=== PATIENT | female | born 1955 | race Caucasian/White ===

== ENCOUNTER → 2018-08-10 | Outpatient (CLI) | payer BC ==
[~2018-08-10] MED LIST: ASPIR 8181 MG PO; CEPHALEXIN500 MG PO; GABAPENTIN400 MG PO; HYDRALAZINE HCL25 MG; HYDRALAZINE HCL25 MG PO; LANTUS100 UNITS/; LASIX40 MG PO; LEVEMIR100 UNIT/1; MAGNESIUM OXID400 MG PO; METOPROLOL SUC100 MG; METOPROLOL TART25 MG PO; NOVOLIN R100 UNIT/1; SUPER-D3+ SOFT1 EACH PO
== END ==
LOC: MAMMO 14:10
DX: Z12.31 Encounter for screening mammogram for malignant neoplasm of breast (principal)
CPT/HCPCS: 77067

== ENCOUNTER → 2018-09-09 | Day surgery (SDC) | payer BC ==
[2018-09-08 11:21] LABS: BASOPHILS % 0.5 % (0.0-1.0); EOSINOPHILS # (AUTO) 0.3 (0.0-0.4); EOSINOPHILS % 3.8 % (0.0-6.0); HEMATOCRIT 34.1 % (34.2-44.1); HEMOGLOBIN 11.1 g/dL (12.0-16.0); LYMPHOCYTES # (AUTO) 1.3 (1.0-3.2); LYMPHOCYTES % 19.2 % (18.0-39.1); MEAN CORPUSCULAR HEMOGLOBIN 30.2 pg (28-32); MEAN CORPUSCULAR HGB CONC 32.6 g/dL (31-35); MEAN CORPUSCULAR VOLUME 92.9 fL (81-99); MONOCYTES # (AUTO) 0.7 (0.2-0.8); MONOCYTES % 10.5 % (4.4-11.3); NEUTROPHILS # (AUTO) 4.4 (2.1-6.9); NEUTROPHILS % 65.5 % (38.7-80.0); PLATELET COUNT 115 x10e3/uL (140-360); RED BLOOD COUNT 3.67 x10e6/uL (3.6-5.1); RED CELL DISTRIBUTION WIDTH 14.8 % (11.7-14.4)
[2018-09-08 11:38] LABS: INR 0.92; PROTHROMBIN TIME 13.2 seconds (11.9-14.5)
[2018-09-08 11:39] LABS: PARTIAL THROMBOPLASTIN TIME 29.4 seconds (23.8-35.5)
[2018-09-08 11:40] LABS: ALBUMIN 3.4 g/dL (3.5-5.0); ALBUMIN/GLOBULIN RATIO 0.9 (0.8-2.0); ANION GAP 15.4 mmol/L (8-16); CALCIUM 9.8 mg/dL (8.4-10.2); CREATININE, SERUM 4.78 mg/dL (0.57-1.11); POTASSIUM 4.4 mmol/L (3.5-5.1)
[~2018-09-09] MED LIST changes: +CARDURA8 MG PO; +CLONAZEPAM0.5 MG PO; +HUMULIN R100 UNIT/2 SC; +LIDOCAINE HCL 2% LOCAL INJ 5 ML SDV VIAL INJ ONE; +MIDAZOLAM HCL 2 MG/2 ML VIAL ONE; +NOVOLIN R100 UNIT/1 SC; +PROPOFOL IV EMULSION 10 MG/ML 50 ML VIAL ONE; +VITAMIN D3400 UNIT PO
--- OUTSIDE RECORDS SUMMARY | 2018-09-09 13:32 | XMS REPORT | Clinical Summary ---
Author Author [facility] Address Unknown Phone Unavailable Care Team Providers Care Calender Let Off Operator Name Role Phone Genoveva Ramos MD PCP Allergies No Known Allergies Current Medications Prescription Sig. Disp. Refills Start End Date Status Date azithromycin (ZITHROMAX Take 2 tablets the first 6 tablet 0 11/25/19 11/29/19 Z-DIO) 250 MG tablet day, then 1 tablet daily 18 18 for 4 days. clonAZEPAM (KlonoPIN) 0.5 Take 1 tablet (0.5 mg 5 tablet 0 11/25/19 11/27/19 MG tablet total) by mouth 2 (two) 18 18 times a day as needed for anxiety or seizures for up to 2 days. albuterol (PROAIR Inhale 1-2 puffs every 6 1 Inhaler 0 11/25/19 12/25/19 HFA,PROVENTIL (six) hours as needed for 18 18 HFA,VENTOLIN HFA) 90 wheezing for up to 30 mcg/actuation inhaler days. acetaminophen-codeine Take 1-2 tablets by mouth 20 tablet 0 02/07/20 02/17/20 (TYLENOL WITH CODEINE #3) every 6 (six) hours as 18 18 300-30 mg per tablet needed for moderate pain for up to 10 days. cyclobenzaprine Take 1 tablet (10 mg 20 tablet 0 02/07/20 02/14/20 (FLEXERIL) 10 mg tablet total) by mouth 3 (three) 18 18 times a day as needed for muscle spasms for up to 7 days. Active Problems Not on file Encounters Date Type Specialty Care Team Description 02/06/2018 Emergency Emergency Medicine Obi, right oSl, MD Darryl initial encounter (Primary Dx) 11/25/2017 Emergency Emergency Medicine Tiana Bailey Bronchitis (Primary Dx) DO Cecy after 09/08/2017 Social History Tobacco Use Types Packs/Day Years Used Date Never Smoker Smokeless Tobacco: Never Used Alcohol Use Drinks/Week oz/Week Comments No Sex Assigned at Date Recorded Not on file Last Filed Vital Signs Vital Sign Reading Time Taken Blood Pressure 168/88 02/06/2018 4:35 PM CDT Pulse 56 02/06/2018 4:35 PM CDT Temperature 36.2 C (97.2 F) 02/06/2018 4:35 PM CDT Respiratory Rate 18 02/06/2018 4:35 PM CDT Oxygen Saturation 100% 02/06/2018 4:35 PM CDT Inhaled Oxygen - - Concentration Weight - - Height 162.6 cm (5' 4") 02/06/2018 12:06 PM CDT Body Mass Index - - Plan of Treatment Health Maintenance Due Date Last Done Comments CERVICAL CANCER SCREENING 1975 BREAST CANCER SCREENING 2004 COLON CANCER SCREENING 2004 SHINGRIX VACCINE (#1) 2004 ZOSTER VACCINE 2014 INFLUENZA VACCINE 06/15/2018 Procedures Procedure Name Priority Date/Time Associated Diagnosis Comments URINALYSIS SCREEN AND Routine 02/06/2018 Results for this MICROSCOPY, WITH REFLEX 1:58 PM CDT procedure are in the TO CULTURE results section. URINE CULTURE Routine 02/06/2018 Results for this 1:58 PM CDT procedure are in the results section. US DUPLEX VENOUS LOWER STAT 02/06/2018 Results for this EXTREMITY RIGHT 1:15 PM CDT procedure are in the results section. ZZESTIMATED GFR STAT 02/06/2018 Results for this 12:20 PM CDT procedure are in the results section. COMPREHENSIVE METABOLIC STAT 02/06/2018 Results for this PANEL 12:20 PM CDT procedure are in the results section. HC COMPLETE BLD COUNT STAT 02/06/2018 Results for this W/AUTO DIFF 12:20 PM CDT procedure are in the results section. ECG ED PRELIMINARY Routine 11/26/2017 Results for this INTERPRETATION 4:49 AM SENIOR ENERGY MARKET COORDINATOR procedure are in the results section. XR CHEST 1 VW PORTABLE STAT 11/25/2017 Results for this 2:34 AM SENIOR ENERGY MARKET COORDINATOR procedure are in the results section. MANUAL DIFFERENTIAL STAT 11/25/2017 Results for this 2:20 AM SENIOR ENERGY MARKET COORDINATOR procedure are in the results section. ZZESTIMATED GFR STAT 11/25/2017 Results for this 2:20 AM SENIOR ENERGY MARKET COORDINATOR procedure are in the results section. B NATRIURETIC PEPTIDE STAT 11/25/2017 Results for this 2:20 AM SENIOR ENERGY MARKET COORDINATOR procedure are in the results section. TROPONIN STAT 11/25/2017 Results for this 2:20 AM SENIOR ENERGY MARKET COORDINATOR procedure are in the results section. COMPREHENSIVE METABOLIC STAT 11/25/2017 Results for this PANEL 2:20 AM SENIOR ENERGY MARKET COORDINATOR procedure are in the results section. PARTIAL THROMBOPLASTIN STAT 11/25/2017 Results for this TIME (PTT) 2:20 AM SENIOR ENERGY MARKET COORDINATOR procedure are in the results section. PROTHROMBIN TIME WITH INR STAT 11/25/2017 Results for this 2:20 AM SENIOR ENERGY MARKET COORDINATOR procedure are in the results section. CBC WITH PLATELET AND STAT 11/25/2017 Results for this DIFFERENTIAL 2:20 AM SENIOR ENERGY MARKET COORDINATOR procedure are in the results section. RESPIRATORY PATHOGEN Routine 11/25/2017 Results for this PANEL 2:20 AM SENIOR ENERGY MARKET COORDINATOR procedure are in the results section. INFLUENZA ANTIGEN Routine 11/25/2017 Results for this 2:20 AM SENIOR ENERGY MARKET COORDINATOR procedure are in the results section. ECG 12-LEAD STAT 11/25/2017 Results for this 1:55 AM SENIOR ENERGY MARKET COORDINATOR procedure are in the results section. after 09/08/2017 Results * Urinalysis screen and microscopy, with reflex to culture (02/06/2018 1:58 PM) Specimen site Clean catch [facility] OF PATHOLOGY AND GENOMIC MEDICINE Color, UA Straw [facility]OLOGY AND GENOMIC MEDICINE Appearance, UA Clear [facility] OF PATHOLOGY AND GENOMIC MEDICINE Specific gravity, UA 1.006 1.001 - 1.035 [facility] PATHOLOGY AND GENOMIC MEDICINE pH, UA 6.0 5.0 - 8.5 [facility] PATHOLOGY AND GENOMIC MEDICINE Protein, UA 2+ (A) Negative [facility] PATHOLOGY AND GENOMIC MEDICINE Glucose, UA 3+ (A) Negative [facility] PATHOLOGY AND GENOMIC MEDICINE Ketones, UA Negative Negative [facility] PATHOLOGY AND GENOMIC MEDICINE Bilirubin, UA Negative Negative [facility] OF PATHOLOGY AND GENOMIC MEDICINE Blood, UA Negative Negative [facility] PATHOLOGY AND GENOMIC MEDICINE Nitrite, UA Negative Negative [facility] PATHOLOGY AND GENOMIC MEDICINE Urobilinogen, UA <2.0 <2.0 [facility] PATHOLOGY AND GENOMIC MEDICINE Leukocyte esterase, UA Negative Negative [facility] OF PATHOLOGY AND GENOMIC MEDICINE Epithelial cells, UA 1 /HPF [facility] PATHOLOGY AND GENOMIC MEDICINE WBC, UA 1 0 - 4 /HPF [facility] OF PATHOLOGY AND GENOMIC MEDICINE RBC, UA 1 0 - 2 /HPF [facility] PATHOLOGY AND GENOMIC MEDICINE Bacteria, UA None seen None seen [facility] PATHOLOGY AND GENOMIC MEDICINE Yeast, UA None seen [facility] PATHOLOGY AND GENOMIC MEDICINE Yeast with pseudohyphae, None seen [facility] OF UA PATHOLOGY AND GENOMIC MEDICINE Specimen Urine Performing Organization Address City/State/Zipcode Phone Number [place] [address] [place] [address] PATHOLOGY AND GENOMIC MEDICINE * Urine culture (02/06/2018 1:58 PM) Urine culture SEE COMMENTComment: [facility] DE[facility] OF Bacteriuria screen negative. PATHOLOGY AND GENOMIC MEDICINE Performing Organization Address City/State/Zipcode Phone Number [place] [address] [place] [address] PATHOLOGY AND GENOMIC MEDICINE * Pv duplex venous lower extremity (02/06/2018 1:15 PM) Narrative Performed At EXAMINATION:US DUPLEX VENOUS LOWER EXTREMITY RIGHT [facility] CLINICAL HISTORY:leg pain and tendnerness mild swelling COMPARISON:None. TECHNIQUE:Grayscale, color Doppler, and spectral waveform analysis of the right lower extremity deep venous system was performed. The common femoral, superficial femoral, proximal deep femoral, greater saphenous, and popliteal veins were evaluated. The calf veins were also evaluated. The contralateral left common femoral vein was evaluated with color flow and duplex Doppler. FINDINGS: The right common femoral, superficial femoral, and popliteal veins are compressible. They demonstrate normal venous waveforms and response to augmentation. There is flow in the visualized calf veins. There is no evidence of a popliteal or Jade's cyst. The contralateral left common femoral vein does not have any evidence of any deep venous thrombosis. IMPRESSION: 1. Normal right lower extremity venous Doppler examination. There is no evidence of deep venous thrombosis. [id number] Procedure Note Interface, Radiology Results Incoming - 02/06/2018 1:25 PM CDT EXAMINATION: US DUPLEX VENOUS LOWER EXTREMITY RIGHT CLINICAL HISTORY: leg pain and tendnerness mild swelling COMPARISON: None. TECHNIQUE: Grayscale, color Doppler, and spectral waveform analysis of the right lower extremity deep venous system was performed. The common femoral, superficial femoral, proximal deep femoral, greater saphenous, and popliteal veins were evaluated. The calf veins were also evaluated. The contralateral left common femoral vein was evaluated with color flow and duplex Doppler. FINDINGS: The right common femoral, superficial femoral, and popliteal veins are compressible. They demonstrate normal venous waveforms and response to augmentation. There is flow in the visualized calf veins. There is no evidence of a popliteal or Jade's cyst. The contralateral left common femoral vein does not have any evidence of any deep venous thrombosis. IMPRESSION: 1. Normal right lower extremity venous Doppler examination. There is no evidence of deep venous thrombosis. [id number] Performing Organization Address City/State/Zipcode Phone Number [facility] [address] [place] [address] * Estimated GFR (02/06/2018 12:20 PM) Only the most recent of 2 results within the time period is included. GFR Non Af Amer 12 (A) mL/min/1.73 m2 [facility] OF PATHOLOGY AND GENOMIC MEDICINE GFR Af Amer 15 (A) mL/min/1.73 m2 [facility] OF Comment: PATHOLOGY AND Chronic kidney disease: <60 GENOMIC MEDICINE mL/min/1.73m2 Kidney failure: <15 mL/min/1.73m2 The estimated GFR is calculated from the IDMS-traceable Modification of Diet in Renal Disease Equation. The accuracy of the calculation is poor when the creatinine is normal. Calculated values >90 mL/min/1.73m2 are not reported. This equation has not been validated in children (<18 years), women, the elderly (>70 years), or ethnic groups other than Caucasians and Americans. Specimen Plasma specimen Performing Organization Address City/[facility] Phone Number [place] [address] [place] [address] PATHOLOGY AND [facility] * CBC with platelet and differential (02/06/2018 12:20 PM) Only the most recent of 2 results within the time period is included. WBC 6.88 4.50 - 11.00 k/uL [facility] OF PATHOLOGY AND GENOMIC MEDICINE RBC 3.26 (L) 4.20 - 5.50 m/uL [facility] OF PATHOLOGY AND GENOMIC MEDICINE HGB 9.1 (L) 12.0 - 16.0 g/dL [facility] OF PATHOLOGY AND GENOMIC MEDICINE HCT 28.5 (L) 37.0 - 47.0 % [facility] OF PATHOLOGY AND GENOMIC MEDICINE MCV 87.4 82.0 - 100.0 fL [facility] OF PATHOLOGY AND GENOMIC MEDICINE MCH 27.9 27.0 - 34.0 pg [facility] PATHOLOGY AND GENOMIC MEDICINE MCHC 31.9 31.0 - 37.0 g/dL [facility] PATHOLOGY AND GENOMIC MEDICINE RDW - SD 48.5 37.0 - 55.0 fL [facility] PATHOLOGY [facility] GENOMIC MEDICINE MPV 12.2 8.8 - 13.2 fL [facility] PATHOLOGY AND [facility] Platelet count 143 (L) 150 - 400 k/uL [facility] PATHOLOGY AND GENOMIC MEDICINE Neutrophils 67.5 39.0 - 69.0 % [facility] PATHOLOGY [facility] Lymphocytes 18.8 (L) 25.0 - 45.0 % [facility] PATHOLOGY AND GENOMIC MEDICINE Monocytes 10.0 0.0 - 10.0 % [facility] PATHOLOGY AND [facility] Eosinophils 2.5 0.0 - 5.0 % [facility] PATHOLOGY [facility] Basophils 0.6 0.0 - 1.0 % [facility] PATHOLOGY [facility] Immature granulocytes 0.6 0.0 - 1.0 % [facility] PATHOLOGY [facility] Specimen Blood Performing Organization Address City/State/Zipcode Phone Number [facility] [address] [place] [address] PATHOLOGY [facility] * Comprehensive metabolic panel (02/06/2018 12:20 PM) Only the most recent of 2 results within the time period is included. Sodium 135 135 - 148 mEq/L [facility] PATHOLOGY AND [facility] Potassium 4.6 3.5 - 5.0 mEq/L [facility] PATHOLOGY AND [facility] Chloride 96 (L) 99 - 109 mEq/L [facility] PATHOLOGY AND GENOMIC MEDICINE CO2 25 24 - 31 mEq/L [facility] PATHOLOGY AND [facility] Anion gap 14 7 - 15 mEq/L [facility] DEPARTMENT OF Comment: PATHOLOGY AND Starting from February [facility] , anion gap calculation no longer incorporates potassium. Please note the change. BUN 72 (H) 8 - 24 mg/dL [facility] PATHOLOGY AND [facility] Creatinine 3.7 (H) 0.5 - 1.5 mg/dL [facility] PATHOLOGY AND [facility] Glucose 337 (H) 65 - 99 mg/dL [facility] PATHOLOGY AND [facility] Calcium 8.5 (L) 8.6 - 10.6 mg/dL [facility] PATHOLOGY AND [facility] Protein 6.6 6.3 - 8.2 g/dL [facility] PATHOLOGY AND [facility] Albumin 2.7 (L) 3.5 - 5.0 g/dL [facility] DEPARTMENT OF PATHOLOGY AND GENOMIC MEDICINE A/G ratio 0.7 0.7 - 3.8 [facility] OF PATHOLOGY AND GENOMIC MEDICINE Alkaline phosphatase 130 (H) 30 - 115 U/L [facility] DE[facility]MENT OF PATHOLOGY AND GENOMIC MEDICINE AST 24 15 - 46 U/L [facility] DEPARTMENT OF PATHOLOGY AND GENOMIC MEDICINE ALT 14 10 - 55 U/L [facility] DEPARTMENT OF PATHOLOGY AND GENOMIC MEDICINE Total bilirubin 0.4 0.2 - 1.2 mg/dL [facility] DEPARTMENT OF PATHOLOGY AND GENOMIC MEDICINE Specimen Plasma specimen Performing Organization Address City/State/Zipcode Phone Number [facility] [place] [place] [address] [place] [address] PATHOLOGY AND GENOMIC MEDICINE * ECG ED Preliminary Interpretation - NOT AN ORDER (11/26/2017 4:49 AM) Narrative Performed At Tiana Bailey DO 11/26/20174:49 AM ECG ED Preliminary Interpretation - Not an Order Performed by: TIANA BAILEY Authorized by: TIANA BAILEY ECG reviewed by ED Physician in the absence of a sap specialist: yes Interpretation: Interpretation: abnormal Rate: ECG rate:62 ECG rate assessment: normal Rhythm: Rhythm: sinus rhythm QRS: QRS axis:Normal Comments: Normal sinus rhythm with no STEMI * XR Chest 1 Vw Portable (11/25/2017 2:34 AM) Narrative Performed At EXAMINATION: XR CHEST 1 VW PORTABLE [facility] CLINICAL HISTORY: Cough COMPARISON:None. IMPRESSION: Mild pulmonary vascular congestion. No focal or confluent airspace consolidation. No pleural effusion or pneumothorax. The cardiac silhouette appears prominent due in part to technique. Thoracic aorta with atherosclerotic calcifications. Degenerative spine changes. No acute osseous abnormalities. [facility]-[id number] Procedure Note Interface, Radiology Results Incoming - 11/25/2017 2:39 AM SENIOR ENERGY MARKET COORDINATOR EXAMINATION: XR CHEST 1 VW PORTABLE CLINICAL HISTORY: Cough COMPARISON: None. IMPRESSION: Mild pulmonary vascular congestion. No focal or confluent airspace consolidation. No pleural effusion or pneumothorax. The cardiac silhouette appears prominent due in part to technique. Thoracic aorta with atherosclerotic calcifications. Degenerative spine changes. No acute osseous abnormalities. [facility]-[id number] Performing Organization Address City/[facility]/Zipcode Phone Number [facility] [address] [place] [address] * Respiratory pathogen panel (11/25/2017 2:20 AM) Respiratory pathogen Positive for Influenza B virus [facility] DEPARTMENT OF panel PATHOLOGY AND Negative for all other GENOMIC MEDICINE pathogens tested: Negative for Adenovirus Negative for Coronavirus HKU1 Negative for Coronavirus NL63 Negative for Coronavirus 229E Negative for Coronavirus OC43 Negative for Human Metapneumovirus Negative for Rhinovirus/Enterovirus Negative for Influenza A Negative for Influenza A/H1 Negative for Influenza A/H3 Negative for Influenza A/H1-2009 Negative for Parainfluenza Virus 1 Negative for Parainfluenza Virus 2 Negative for Parainfluenza Virus 3 Negative for Parainfluenza Virus 4 Negative for Respiratory Syncytial Virus Negative for Bordetella pertussis Negative for Chlamydophila pneumoniae Negative for Mycoplasma pneumoniae This real-time PCR assay detects the presence of nucleic acids (RNA or DNA) for the respiratory pathogens listed. A result of "Not-detected" does not exclude the possibility of the presence of one or more pathogens at concentrations less than the detectable limits of the assa (A) Comment: Specimen Information Specimen Source: Nares Specimen Site: Left Specimen Nares - Left Performing Organization Address City/State/Zipcode Phone Number [facility] DEPARTMENT OF [address] [place] [address] PATHOLOGY AND GENOMIC MEDICINE * Troponin (11/25/2017 2:20 AM) Troponin <0.30 0.00 - 0.30 ng/mL [facility] DEPARTMENT OF Comment: PATHOLOGY AND 0.11 - 1.49 GENOMIC MEDICINE ng/mlMay indicate increased risk of acute coronary syndrome. >=1.5 ng/ml Consistent with acute myocardial infarction. The diagnostic value of a single normal or non-diagnostic result is questionable.Serial samples at 2-6 hour intervals are required to rule out acute myocardial injury. Specimen Plasma specimen Performing Organization Address City/State/Zipcode Phone Number [facility] [place] [address] [place] [address] PATHOLOGY AND GENOMIC MEDICINE * Manual differential (11/25/2017 2:20 AM) Manual differential PERFORMED [facility] DEPARTMENT OF PATHOLOGY AND GENOMIC MEDICINE Neutrophils 62.0 39.0 - 69.0 % [facility] DEPARTMENT OF PATHOLOGY AND GENOMIC MEDICINE Lymphocytes 32.0 25.0 - 45.0 % [facility] DEPARTMENT OF PATHOLOGY AND GENOMIC MEDICINE Monocytes 6.0 0.0 - 10.0 % [facility] DEPARTMENT OF PATHOLOGY AND GENOMIC MEDICINE Eosinophils 0.0 0.0 - 5.0 % [facility] DEPARTMENT OF PATHOLOGY AND GENOMIC MEDICINE Basophils 0.0 0.0 - 1.0 % [facility] DEPARTMENT OF PATHOLOGY AND GENOMIC MEDICINE Reactive lymphocytes Few [facility] DEPARTMENT OF PATHOLOGY AND GENOMIC MEDICINE Platelet slide review Decreased (A) [facility] DEPARTMENT OF PATHOLOGY AND GENOMIC MEDICINE Neutrophils, vacuolated Slight [facility] DEPARTMENT OF PATHOLOGY AND GENOMIC MEDICINE Anisocytosis Moderate [facility] DEPARTMENT OF PATHOLOGY AND GENOMIC MEDICINE Spherocytes Occasional [facility] DEPARTMENT OF PATHOLOGY AND GENOMIC MEDICINE Ovalocytes Moderate [facility] DEPARTMENT OF PATHOLOGY AND GENOMIC MEDICINE Enlarged platelets Moderate (A) [facility] DEPARTMENT OF PATHOLOGY AND GENOMIC MEDICINE Performing Organization Address City/[facility] [place] [address] PATHOLOGY AND GENOMIC MEDICINE * Partial thromboplastin time, activated (11/25/2017 2:20 AM) PTT 33.2 23.0 - 36.0 sec [facility] DEPARTMENT OF Comment: PATHOLOGY AND PTT therapeutic range for [facility] MEDICINE unfractionated heparin is 61.0-112.0 seconds which corresponds to Anti-Xa 0.3-0.7 U/ml. Specimen Blood Performing Organization Address [facility] [place] [address] PATHOLOGY AND [facility] * Prothrombin time with INR (11/25/2017 2:20 AM) Prothrombin time 12.7 12.0 - 15.0 sec [facility] DEPARTMENT OF PATHOLOGY AND GENOMIC MEDICINE INR 0.9 [facility] DEPARTMENT OF Comment: PATHOLOGY AND The International Normalized GENOMIC MEDICINE Ratio (INR) is a therapeutic monitoring tool for patients who are stable on oral anticoagulant therapy. An INR of 2.0-3.0 is suggested for deep vein thrombosis/pulmonary embolism. Specimen Blood Performing Organization Address City/[facility] [place] [address] PATHOLOGY AND [facility] * Influenza antigen (11/25/2017 2:20 AM) Influenza antigen Negative for Influenza A/B [facility] DEPARTMENT OF antigen. PATHOLOGY AND Comment: GENOMIC MEDICINE Specimen Information Specimen Source: Nares Specimen Site: Left Specimen Nares - Left Performing Organization Address City/State/[facility] Phone Number [facility] [place] [address] [place] [address] PATHOLOGY AND GENOMIC MEDICINE * B natriuretic peptide (11/25/2017 2:20 AM) BNP 44 0 - 100 pg/mL [facility] DEPARTMENT OF PATHOLOGY AND GENOMIC MEDICINE Specimen Blood Performing Organization Address [facility] [place] [address] PATHOLOGY AND GENOMIC MEDICINE * ECG 12 lead (11/25/2017 1:55 AM) Ventricular rate 62 [facility] Atrial rate 62 [facility] MN interval 118 [facility] QRSD interval 96 [facility] QT interval 484 [facility] QTC interval 491 [facility] P axis 1 60 [facility] QRS axis 1 48 [facility] T wave axis 90 [facility] EKG impression Normal sinus rhythm-Prolonged [facility] QT-Abnormal ECG-No previous ECGs available- Performing Organization Address [facility] Phone Number [facility] [address] [place] [address] after 09/08/2017 Insurance Payer Benefit Subscriber ID Type Phone Address Plan / Group BCBS BCBS OUT xxxxxxxxxxxx [place] [address]
--- OUTSIDE RECORDS SUMMARY | 2018-09-09 13:32 | XMS REPORT ---
Author [facility] Address Unknown Phone Unavailable Care Team Providers Care Timber Framer Helper Name Role Phone EVAN ARSHAD Unavailable Unavailable Problems This patient has no known problems. Allergies, Adverse Reactions, Alerts This patient has no known allergies or adverse reactions. Medications This patient has no known medications. Results Test Description Test Time Test Comments Text Results Atomic Results Result Comments MAMMOGRAPHY DIGITAL SCR BILAT 2018-08-10 14:57:00 [place] [address] Patient Name: SADIE GUTIERREZ MR #: [id number] : 1955 Age/Sex: 62/F Req #: [id number] [facility] Physician: Ordered by: EVAN ARSHAD MD Report #: [id number] Location: MAMMO Room/Bed: Procedure: MG/MAMMOGRAPHY DIGITAL SCR BILAT Exam Date: 08/10/18 Exam Time: 1434 REPORT STATUS: Signed #[id number] - [id number] #BILATERAL DIGITAL SCREENING MAMMOGRAM WITH CAD: 08/10/2018 CLINICAL: Routine screening. No prior exams were available for comparison. Current study contains 4 films. There are scattered fibroglandular elements in both breasts. Current study was also evaluated with a Computer Aided Detection (CAD) system. There are benign vascular calcifications and calcifications in both breasts. No significant masses, calcifications, or other findings are seen in either breast. IMPRESSION: BENIGN There is no mammographic evidence of malignancy. A 1 year screening mammogram is recommended. The patient will be notified by letter of the results. Shreya estrada/robb:08/16/2018 14:11:55 Metal Stamper: Dawn JOHN)(Oleg), [facility] letter sent: Normal Exam Mammogram BI-RADS: 2 Benign Dictated By: SHREYA ASENCIO DO 1411 Transcribed By: ROBB on 08/16/18 1411 COPY TO: EVAN ARSHAD MD
[2018-09-09 16:15] VITALS: BP 141/67
--- NOTE | 2018-09-09 17:08 | Operative Report ---
DATE OF PROCEDURE: September 09, 2018 REFERRING PHYSICIAN: Dr. Felix Ramos. PROCEDURES PERFORMED: 1. Esophagogastroduodenoscopy with biopsies. 1. Colonoscopy with biopsies. INDICATIONS FOR ESOPHAGOGASTRODUODENOSCOPY: Dyspepsia. INDICATIONS FOR COLONOSCOPY: Surveillance colonoscopy, personal history of colon polyps. MEDICATION: Patient was done under MAC. Please see anesthesiologist's note. PROCEDURE: With the patient in the left lateral decubitus position, the flexible fiberoptic Olympus gastroscope was introduced into the esophagus under direct visualization without any difficulty. There was some patchy erythema noted in the distal esophagus. A minute tongue of velvety red mucosa was noted to extend proximally from the GE junction, and that was biopsied to rule out Siegel's. The scope was then advanced with ease into the stomach, traversing a small hiatal hernia. There was a minute nodule noted in the hiatal hernia, and that was biopsied. Mucosa overlying the distal body was somewhat atrophic, and biopsies were obtained to rule out atrophic gastritis. The mucosa overlying the antrum revealed some diffuse erythema and moderate edema, and biopsies were obtained and sent to stain for H. pylori. Pylorus was of normal contour and shape, was intubated with ease, and the scope was advanced all the way to the 2nd portion of the duodenum. The scope was then withdrawn slowly. Mucosa overlying the proximal 2nd portion and the duodenal bulb appeared to be within normal limits. The scope was then withdrawn back into the stomach and retroflexed. Mucosa overlying the fundus appeared to be within normal limits. The previously described hiatal hernia was also noted in the retroflexed position. The scope was then straightened out. The stomach was decompressed. The scope was subsequently withdrawn. Patient tolerated procedure well. IMPRESSION: 1. Mild distal esophagitis. 2. Rule out Siegel's esophagus. 3. Hiatal hernia. 4. Minute nodule in hiatal hernia sac biopsied. 5. Gastritis antrum biopsied. 6. Rule out atrophic gastritis distal body. PLAN: Follow up histology. Initiate Protonix 40 mg 1 p.o. q.a.m. a.c. Patient was then turned around and after adequate lubrication of the anal canal, a flexible fiberoptic Olympus colonoscope was inserted into the rectum with ease and advanced all the way to approximately the mid transverse colon. It could not be advanced any further as a loop of the transverse colon was incarcerated in an abdominal hernia. The scope was then withdrawn back slowly. Mucosa overlying the left colon revealed some patchy mild inflammatory changes. Diverticular disease was noted to involve the descending and the sigmoid colon. Anastomotic site was noted at 18 cm from the anal verge and was intact, and there was no evidence of recurrence. The scope was then retroflexed into the distal rectum and internal hemorrhoids were noted, none of which was actively bleeding. The scope was then straightened out. It was subsequently withdrawn. Patient tolerated procedure well. IMPRESSION: 1. Colonoscopy to approximately mid transverse colon. Scope could not be advanced any further secondary to the presence of a transverse colon loop incarcerated in an abdominal hernia. 2. Diverticulosis. 3. Mild patchy left-sided colitis. 4. Anastomosis intact at 18 cm from the anal verge. 5. Internal hemorrhoids, none actively bleeding. PLAN: Follow up histology. Initiate high-fiber low-fat diet. Start VSL#3 one p.o. daily. Patient might benefit from a general surgical opinion. Job#: [id number] EV cc:MD ANIBAL MARIE MD
== END | disposition home or self-care (01) ==
LOC: OR 13:30
PROVIDERS: ATTEND Internal Medicine Gastroenterology
DX: K29.50 Unspecified chronic gastritis without bleeding (principal); K31.7 Polyp of stomach and duodenum; K51.50 Left sided colitis without complications; K22.70 Barrett's esophagus without dysplasia; K20.9 Esophagitis, unspecified; K44.9 Diaphragmatic hernia without obstruction or gangrene; K31.89 Other diseases of stomach and duodenum; K22.9 Disease of esophagus, unspecified; K63.89 Other specified diseases of intestine; K46.0 Unspecified abdominal hernia with obstruction, without gangrene; K57.30 Diverticulosis of large intestine without perforation or abscess without bleeding; Z98.0 Intestinal bypass and anastomosis status; K64.8 Other hemorrhoids; E11.22 Type 2 diabetes mellitus with diabetic chronic kidney disease; I12.9 Hypertensive chronic kidney disease with stage 1 through stage 4 chronic kidney disease, or unspecified chronic kidney disease; N18.9 Chronic kidney disease, unspecified; E66.3 Overweight; Z88.6 Allergy status to analgesic agent; Z01.810 Encounter for preprocedural cardiovascular examination; Z01.812 Encounter for preprocedural laboratory examination; Z79.4 Long term (current) use of insulin
CPT/HCPCS: 36415 ×2; 43239; 45380; 80053; 82948; 85025; 85610; 85730; 93005; J2001; J2250; 45378

== ENCOUNTER 2023-09-08 07:55 | Inpatient (IN) | payer MEDICARE ==
[2023-09-06 11:20] LABS: BASOPHILS # (AUTO) 0.1 (0.0-0.1); BASOPHILS % 0.5 % (0.0-1.0); EOSINOPHILS # (AUTO) 0.1 (0.0-0.4); EOSINOPHILS % 0.7 % (0.0-6.0); HEMATOCRIT 44.6 % (34.2-44.1); HEMOGLOBIN 14.6 g/dL (12.0-16.0); LYMPHOCYTES # (AUTO) 1.9 (1.0-3.2); LYMPHOCYTES % 18.1 % (18.0-39.1); MEAN CORPUSCULAR HEMOGLOBIN 28.6 pg (28-32); MEAN CORPUSCULAR HGB CONC 32.7 g/dL (31-35); MEAN CORPUSCULAR VOLUME 87.3 fL (81-99); MONOCYTES # (AUTO) 0.8 (0.2-0.8); MONOCYTES % 7.7 % (4.4-11.3); NEUTROPHILS # (AUTO) 7.6 (2.1-6.9); NEUTROPHILS % 72.7 % (38.7-80.0); PLATELET COUNT 169 x10e3/uL (140-360); RED BLOOD COUNT 5.11 x10e6/uL (3.6-5.1); RED CELL DISTRIBUTION WIDTH 13.7 % (11.7-14.4); WHITE BLOOD COUNT 10.38 x10e3/uL (4.8-10.8)
[2023-09-06 12:09] LABS: ANION GAP 12.8 mmol/L (8-16); CALCIUM 9.3 mg/dL (8.4-10.2); CREATININE, SERUM 0.88 mg/dL (0.57-1.11); POTASSIUM 4.8 mmol/L (3.5-5.1)
[~2023-09-08] VITALS: Ht 165.1 cm; Wt 91.6 kg
[~2023-09-08 07:55] MED LIST changes: +AMLODIPINE BESYL5 MG PO; +BIOTIN1 MG; +CHROMIUM; +HUMALOG MI100 UNIT/2 SQ; -LIDOCAINE HCL 2% LOCAL INJ 5 ML SDV VIAL INJ ONE; +LOSARTAN POTASS25 MG PO; -MIDAZOLAM HCL 2 MG/2 ML VIAL ONE; +MYCOPHENOLATE500 MG PO; +PREDNISONE5 MG PO; +PROGRAF1 MG PO; -PROPOFOL IV EMULSION 10 MG/ML 50 ML VIAL ONE; +TRESIBA FL100 UNIT/1 SC; +VITAMIN D31 ML; +ZINC
[2023-09-08] MEDS ORDERED: DEXTROSE 5% 250ML 250 ML IV ONE (08:29)
[2023-09-08] MEDS ORDERED: LACTATED RINGER'S 1,000 ML ONE (08:29)
[2023-09-08] MEDS ORDERED: BUPIVACAINE 0.25% 30ML SDV ONE (11:36)
[2023-09-08] MEDS ORDERED: HYDROMORPHONE 1MG/1ML INJ ONE (11:46)
[2023-09-08] MEDS ORDERED: EPHEDRINE SULFATE INJ 50 MG/ML VIAL ONE (12:05)
[2023-09-08] MEDS ORDERED: PROPOFOL IV EMULSION 10 MG/ML 20 ML VIAL ONE (12:05)
[2023-09-08] MEDS ORDERED: LIDOCAINE HCL 2% LOCAL INJ 5 ML SDV VIAL INJ ONE (12:05)
[2023-09-08] MEDS ORDERED: DEXAMETHASONE SOD PHOS INJ 4 MG/ML SDV ONE (12:05)
[2023-09-08] MEDS ORDERED: ROCURONIUM BROMIDE 10 MG/ML 5ML VIAL IV ONE (12:05)
[2023-09-08] MEDS ORDERED: ONDANSETRON HCL INJ 2MG/ML 2ML 2 MG/ML VIAL ONE (12:05)
[2023-09-08] MEDS ORDERED: SUCCINYLCHOLINE CHLORIDE 20 MG/ML 10ML VIAL ONE (12:05)
[2023-09-08] MEDS ORDERED: SEVOFLURANE INHAL SOLN 250 ML PEN BTL ONE (12:05)
[2023-09-08] MEDS ORDERED: NALOXONE HCL INJ 0.4 MG/ML AMP IV PRN (13:15)
[2023-09-08] MEDS ORDERED: ACETAMINOPHEN 1000 MG/100 ML IV PRN (13:15)
[2023-09-08] MEDS: SODIUM CHLORIDE 0.9% 250ML IRRIG IR SCH ×3 (13:15→21:55)
[2023-09-08] MEDS: HYDROMORPHONE 0.2MG/ML-SOD CHL 30ML PCA SYRINGE IV PRN (13:31)
[2023-09-08] MEDS ORDERED: MIDAZOLAM HCL 2 MG/2 ML VIAL ONE (14:06)
[2023-09-08] MEDS ORDERED: FENTANYL CITRATE/PF 100MCG/2 ML INJ ONE (14:06)
[2023-09-08] MEDS ORDERED: DEXTROSE 50% SYRINGE 50 ML IV PRN (14:45)
[2023-09-08 16:30] VITALS: BP 142/67; PULSE 85; RESP 17; TEMP 97.5; O2SAT 98
[2023-09-08] MEDS: ONDANSETRON HCL INJ 2MG/ML 2ML 2 MG/ML VIAL IV PRN (16:35)
[2023-09-08 16:39] VITALS: BP 142/67; PULSE 85; RESP 17; TEMP 97.5; O2SAT 98
[2023-09-08 17:28] VITALS: PULSE 100; RESP 16; O2SAT 95
[2023-09-08] MEDS: INSULIN REGULAR, HUMAN 100 UNIT/1 ML SQ SCH ×2 (18:00→21:55)
[2023-09-08] MEDS: SODIUM CHLORIDE 0.9% 1000ML 1,000 ML IV SCH ×2 (18:25→20:56)
[2023-09-08 20:00] VITALS: BP 167/76; PULSE 87; RESP 18; TEMP 97.5; O2SAT 93
[2023-09-08 21:35] VITALS: PULSE 89; RESP 16; O2SAT 95
[2023-09-09] VITALS (10 sets, daily range): BP systolic 136–168; BP diastolic 60–76; PULSE 75–95; RESP 17–20; TEMP 97.2–99.2; O2SAT 93–100
[2023-09-09] MEDS: SODIUM CHLORIDE 0.9% 250ML IRRIG IR SCH ×4 (00:57→13:15)
[2023-09-09] MEDS: ONDANSETRON HCL INJ 2MG/ML 2ML 2 MG/ML VIAL IV PRN ×2 (00:57→05:07)
[2023-09-09 05:27] LABS: BASOPHILS % 0.2 % (0.0-1.0); HEMATOCRIT 43.7 % (34.2-44.1); LYMPHOCYTES % 7.7 % (18.0-39.1); MEAN CORPUSCULAR HEMOGLOBIN 27.9 pg (28-32); MEAN CORPUSCULAR VOLUME 87.2 fL (81-99); MONOCYTES # (AUTO) 1.1 (0.2-0.8); MONOCYTES % 8.1 % (4.4-11.3); NEUTROPHILS # (AUTO) 11.4 (2.1-6.9); NEUTROPHILS % 83.6 % (38.7-80.0); PLATELET COUNT 153 x10e3/uL (140-360); RED BLOOD COUNT 5.01 x10e6/uL (3.6-5.1); RED CELL DISTRIBUTION WIDTH 13.9 % (11.7-14.4); WHITE BLOOD COUNT 13.58 x10e3/uL (4.8-10.8)
[2023-09-09] MEDS: INSULIN REGULAR, HUMAN 100 UNIT/1 ML SQ SCH ×3 (06:00→18:00)
[2023-09-09 06:27] LABS: ANION GAP 12.8 mmol/L (8-16); CALCIUM 8.2 mg/dL (8.4-10.2); CREATININE, SERUM 0.74 mg/dL (0.57-1.11); POTASSIUM 4.8 mmol/L (3.5-5.1)
[2023-09-09] MEDS: SODIUM CHLORIDE 0.9% 1000ML 1,000 ML IV SCH ×2 (09:15→14:25)
[2023-09-09] MEDS: HYDROMORPHONE 0.2MG/ML-SOD CHL 30ML PCA SYRINGE IV PRN (17:17)
[2023-09-09] MEDS ORDERED: HYDROMORPHONE 1MG/1ML INJ IV PRN (17:45)
[2023-09-09] MEDS ORDERED: HYDROCODONE/APAP 7.5MG-325MG 1 EA TAB PO PRN (17:45)
[2023-09-10] VITALS (7 sets, daily range): BP systolic 96–197; BP diastolic 56–80; PULSE 73–95; RESP 18–20; TEMP 97.9–100.5; O2SAT 94–98
[2023-09-10 05:45] LABS: BASOPHILS % 0.3 % (0.0-1.0); EOSINOPHILS # (AUTO) 0.1 (0.0-0.4); EOSINOPHILS % 0.5 % (0.0-6.0); HEMATOCRIT 40.9 % (34.2-44.1); LYMPHOCYTES # (AUTO) 1.5 (1.0-3.2); LYMPHOCYTES % 11.5 % (18.0-39.1); MEAN CORPUSCULAR HEMOGLOBIN 28.8 pg (28-32); MEAN CORPUSCULAR HGB CONC 31.8 g/dL (31-35); MEAN CORPUSCULAR VOLUME 90.7 fL (81-99); MONOCYTES # (AUTO) 1.5 (0.2-0.8); MONOCYTES % 11.7 % (4.4-11.3); NEUTROPHILS # (AUTO) 9.7 (2.1-6.9); NEUTROPHILS % 75.5 % (38.7-80.0); PLATELET COUNT 146 x10e3/uL (140-360); RED BLOOD COUNT 4.51 x10e6/uL (3.6-5.1); RED CELL DISTRIBUTION WIDTH 14.1 % (11.7-14.4); WHITE BLOOD COUNT 12.82 x10e3/uL (4.8-10.8)
[2023-09-10] MEDS: INSULIN REGULAR, HUMAN 100 UNIT/1 ML SQ SCH ×2 (06:00)
[2023-09-10 06:15] LABS: ANION GAP 11.1 mmol/L (8-16); CALCIUM 8.1 mg/dL (8.4-10.2); CREATININE, SERUM 0.74 mg/dL (0.57-1.11); POTASSIUM 4.1 mmol/L (3.5-5.1)
[2023-09-10] MEDS ORDERED: POTASSIUM CHLORIDE 20 MEQ TAB CR PO STA (08:36)
[2023-09-10] MEDS ORDERED: PANTOPRAZOLE SOD 40 MG TABEC PO SCH (16:30)
== END 2023-09-10 12:35 | disposition home or self-care (01) | DRG 355 ==
LOC: OR 07:55 → PACU V 13:23 → MED/SURG 16:21 → OBSVTOIN 09-09 14:18
PROVIDERS: ADMIT Surgery; ATTEND Surgery
PROC: 0WUF0JZ Supplement Abdominal Wall with Synthetic Substitute, Open Approach (ICD-10-PCS; principal; 2023-09-08 10:55)
DX: K43.6 Other and unspecified ventral hernia with obstruction, without gangrene (principal); I10 Essential (primary) hypertension; E11.9 Type 2 diabetes mellitus without complications; Z79.4 Long term (current) use of insulin
CPT/HCPCS: 36415; 71046; 80048; 82948; 85025; 88302; 94799; C1781; G0378; J0330; J0690; J1100; J1170; J2001; J2250; J2405; J7030; J7070

== ENCOUNTER → 2024-09-07 | Outpatient (REF) | payer MEDICARE | LOC: MRI 14:06 | PROVIDERS: ATTEND Family Medicine Adult Medicine | DX: R41.3 Other amnesia (principal) | CPT/HCPCS: 70551 ==